=== PATIENT | female | born 1965 | race Two or more races ===

== ENCOUNTER 2019-06-01 10:42 | Emergency (ER) | payer OTHER ==
[2019-06-01 10:47] VITALS: BP 157/83; PULSE 78; TEMP 98.6; BMI 28.8
[2019-06-01] MEDS ORDERED: KETOROLAC TROMETHAMINE 60 MG/2 ML VIAL IM ONE (10:51)
[2019-06-01] MEDS ORDERED: KETOROLAC TROMETHAMINE 60 MG/2 ML VIAL ONE (10:52)
--- NOTE | 2019-06-01 10:57 | PDOC ---
History of Present Illness - General Chief Complaint: Pain Stated Complaint: RT.ELEUDLER PAIN Time Seen by Provider: 06/01/19 10:45 History Source: Patient - History of Present Illness Occurred: reports: other Severity: reports: moderate Upper Extremity Pain Location: right: shoulder Past History - Past Medical History Allergies/Adverse Reactions: Allergies Allergy/AdvReac Type Severity Reaction Status Date / Time No Known Allergies Allergy Verified 06/01/19 10:47 Home Medications: Ambulatory Orders Naproxen 500 mg PO BID #20 tablet 06/01/19 COPD: No - Psycho Social/Smoking Cessation Hx Smoking History: Never smoked Information on smoking cessation initiated: No Hx Alcohol Use: No Drug/Substance Use Hx: No Review of Systems - Review of Systems Respiratory: No: Shortness of Breath Cardiac (ROS): No: Chest Pain Musculoskeletal: Yes: Joint Pain. No: Joint Swelling, Neck Pain Neurological: No: Numbness, Tingling, Weakness *Physical Exam - Vital Signs Last Vital Signs Temp Pulse Resp BP Pulse Ox 98.6 F 78 17 157/83 99 06/01/19 10:45 06/01/19 10:45 06/01/19 10:45 06/01/19 10:45 06/01/19 10:45 - Physical Exam General Appearance: Yes: Appropriately Dressed. No: Apparent Distress HEENT: positive: Normal Voice Neck: positive: Supple Respiratory/Chest: positive: Lungs Clear, Normal Breath Sounds. negative: Respiratory Distress Cardiovascular: positive: Regular Rate, S1, S2 Extremity: positive: Normal Inspection, Tender (to anterior GH joint of R shoulder, pain to site w/ DI, NVI), Swelling Integumentary: positive: Dry, Warm Neurologic: positive: Fully Oriented, Alert, Normal Mood/Affect Medical Decision Making - Medical Decision Making 06/01/19 10:55 54-year-old female no significant history here with right shoulder pain for 3 days. Pain located to anterior right shoulder and worse with certain movements. No sensory changes or neck pain. Denies trauma or obvious inciting factors. No history of similar pain. Has not taken anything for pain. No chest pain or shortness of breath see exam Atraumatic R shoulder pain ? MSK, i.e arthritis, overuse, etc Dose of toradol given here -Dc w/ pain meds -ortho f/u as needed Discharge - Discharge Information Problems reviewed: Yes Clinical Impression/Diagnosis: Shoulder pain Qualifiers: Chronicity: acute Laterality: right Qualified Code(s): M25.511 - Pain in right shoulder Condition: Good Disposition: HOME - Additional Discharge Information Prescriptions: Naproxen 500 mg PO BID #20 tablet - Follow up/Referral - Patient Discharge Instructions Patient Printed Discharge Instructions: DI for Shoulder Pain Additional Instructions: Because of your shoulder pain is unclear at this time but may be muscular in nature. Take Motrin or Tylenol as needed for pain and if pain persist after 2 weeks please follow-up with Dr. Wang of orthopedics - Post Discharge Activity
== END 2019-06-01 11:06 | disposition home or self-care (01) ==
LOC: JERFT 10:42
PROC: 3E0233Z Introduction of Anti-inflammatory into Muscle, Percutaneous Approach (ICD-10-PCS; principal; 2019-06-01)
DX: M25.511 Pain in right shoulder (principal)
CPT/HCPCS: 96372; 99281-25